=== PATIENT | male | born 1980 | race African-American/Black ===

== ENCOUNTER 2021-09-10 06:20 | Emergency (ER) | payer OTHER ==
[2021-09-10 06:46] LABS: BASOPHIL 0.5 % (0-2); EOSINOPHIL 1.8 % (0-5); HCT 40.2 % (42.0-52.0); HGB 13.7 g/dl (13.2-18.0); LYMPHOCYTE 43.8 % (15-48); MCH 30.5 pg (25.0-31.0); MCHC 34.1 g/dL (32.0-36.0); MCV 89.5 fL (78.0-100.0); MONOCYTE 10.6 % (0-12); MPV 10.1 fL (6.0-9.5); NEUTROPHIL 43.1 % (41-80); NRBC 0; PLT 301 K/uL (150-400); RBC 4.49 M/uL (4.70-6.00); RDW 12.2 % (11.5-14.0); WBC 4.4 K/uL (4.0-10.5)
[2021-09-10 07:45] LABS: ALBUMIN 4.2 g/dL (3.4-5.0); BILIRUBIN - TOTAL 0.7 mg/dL (0.2-1.0); BUN/CREAT RATIO (CALC) 9.6 RATIO; CREATININE 1.04 mg/dL (0.67-1.17); GLOBULIN (CALCULATION) 3.8 g/dL; POTASSIUM 3.6 mmol/L (3.5-5.1)
== END 2021-09-10 11:15 | disposition home or self-care (01) ==
LOC: FER 06:20
PROVIDERS: Internal Medicine
DX: R07.89 Other chest pain (principal); I51.7 Cardiomegaly
CPT/HCPCS: 36415; 71045; 80053; 83690; 84145; 84484; 85025; 93005; J2270; J2405

== ENCOUNTER 2021-10-13 07:02 | Emergency (ER) | payer OTHER | END 2021-10-13 07:42 | disposition home or self-care (01) | LOC: FER 07:02 | DX: F44.4 Conversion disorder with motor symptom or deficit (principal) | CPT/HCPCS: 99283 ==

== ENCOUNTER 2022-04-04 20:42 | Emergency (ER) | payer OTHER ==
[2022-04-04 22:01] LABS: BILIRUBIN NEGATIVE (NEGATIVE); BLOOD NEGATIVE Ery/uL (NEGATIVE); CLARITY CLEAR (CLEAR); COLOR YELLOW (YELLOW); GLUCOSE (U) NORMAL (NORMAL); LEUKOCYTES NEGATIVE Leu/uL (NEGATIVE); NITRITE NEGATIVE (NEGATIVE); PROTEIN NEGATIVE (NEGATIVE); SPECIFIC GRAVITY 1.015 (1.001-1.030); UROBILINOGEN 0.2 mg/dL (0.2-1.0); pH 7.5 (5.0-9.0)
[2022-04-07 22:05] LABS: CHLAMYDIA TRACHOMATIS, NAA Negative (Negative); NEISSERIA GONORRHOEAE, NAA Negative (Negative)
== END 2022-04-04 22:26 | disposition home or self-care (01) ==
LOC: FER 20:42
PROVIDERS: Nurse Practitioner Family
DX: R31.9 Hematuria, unspecified (principal)
CPT/HCPCS: 81003; 87491; 87591; J0696; Q0162